=== PATIENT | male | born 1955 | race Caucasian/White ===

== ENCOUNTER → 2017-06-13 | Day surgery (SDC) | payer OTHER ==
[2017-06-07 07:35] VITALS: Ht 193 cm; Wt 106.8 kg
[~2017-06-13] VITALS: Ht 193 cm; Wt 106.8 kg
[~2017-06-13] MED LIST: ATOR-22 PO; LIDOCAINE HCL 2% 2 ML VIAL (20MG/ML) ONE; MIDAZOLAM HCL 1 MG/ML 2ML VIAL ONE; ONDANSETRON INJ 2 MG/ML 2 ML VIAL ONE; PROPOFOL IV EMULSION 10 MG/ML 20 ML VIAL IV ONE; SODIUM CHLORIDE 0.9% 500ML 500 ML IV ONE; [UNRECOGNIZED DRUG - OTHER] PO
--- NOTE | 2017-06-13 08:56 | Endo History and Physical ---
History & Physical Date of Service: Jun 13, 2017. Chief Complaint: history of polyps Referring Physician: Dr.Christopher Camarillo History of Present Illness 61 yo CM who presents for colonoscopy secondary to history of colon polyps. Past Surgical History Hx Cardiac Surgery: No Hx Internal Defibrillator: No Hx Pacemaker: No Hx Abdominal Surgery: Yes (SPLEENECTOMY S/P TRAUMA) Hx of Implantable Prosthesis: No Hx Post-Op Nausea and Vomiting: No Hx Cancer Surgery: No Hx Thoracic Surgery: No Hx Orthopedic: Yes (RT KNEE SURGERY) Hx Urinary Tract Surgery: No Family History None Social History Smoking Status: Never Smoker Hx Substance Use: No Hx Alcohol Use: Yes (OCCASIONAL) Allergies Coded Allergies: Sulfa Drugs (Verified Allergy, Intermediate, HIVES, 06/07/17) Current Medications Reported Home Medications Medications Dose Route/Sig Max Daily Dose Days Date Category [Procap] 6 Tabs PO DAILY 06/07/17 Reported Lipitor (Atorvastatin Calcium) 20 Mg Tab 20 Mg PO HS 06/07/17 Reported Vital Signs Weight (Kilograms): 106.82 Height (Feet): 6 Height (Inches): 4 Date Time Temp Pulse Resp B/P (MAP) Pulse Ox O2 Delivery O2 Flow Rate FiO2 06/13/17 08:40 36.5 56 16 113/65 (81) 99 Room Air Physical Exam General Appearance: WD/WN, no apparent distress Respiratory/Chest: Auscultation: breath sounds normal Cardiovascular: Heart Auscultation: RRR Abdomen: Bowel Sounds: normal Inspection & Palpation: soft, non-distended, no tenderness, guarding & rebound Assessment and Plan Assessment: 61 yo CM who presents for colonoscopy secondary to history of colon polyps. Plan: Proceed with colonoscopy.
--- NOTE | 2017-06-13 09:26 | GI REPORT ---
Procedure Date: 06/13/2017 9:00 AM Procedure: Colonoscopy Indications: High risk colon cancer surveillance: Personal history of colonic polyps Medicines: Monitored Anesthesia Care Complications: No immediate complications. Estimated Blood Loss: Estimated blood loss: none. Procedure: Pre-Anesthesia Assessment: - Prior to the procedure, a History and Physical was performed, and patient medications and allergies were reviewed. The patient's tolerance of previous anesthesia was also reviewed. The risks and benefits of the procedure and the sedation options and risks were discussed with the patient. All questions were answered, and informed consent was obtained. Prior Anticoagulants: The patient has taken no previous anticoagulant or antiplatelet agents. ASA Grade Assessment: II - A patient with mild systemic disease. After reviewing the risks and benefits, the patient was deemed in satisfactory condition to undergo the procedure. After I obtained informed consent, the scope was passed under direct vision. Throughout the procedure, the patient's blood pressure, pulse, and oxygen saturations were monitored continuously. The scope was introduced through the anus and advanced to the terminal ileum. The colonoscopy was performed without difficulty. The patient tolerated the procedure well. The quality of the bowel preparation was good. The terminal ileum, ileocecal valve, appendiceal orifice, and rectum were photographed. Findings: Multiple small-mouthed diverticula were found in the sigmoid colon. Non-bleeding internal hemorrhoids were found during retroflexion. The hemorrhoids were small. Impression: - Diverticulosis in the sigmoid colon. - Non-bleeding internal hemorrhoids. - No specimens collected. Recommendation: - Resume previous diet. - Continue present medications. - Repeat colonoscopy in 5 years for surveillance. - Return to primary care physician as previously scheduled. Catracho Villalta DO 06/13/2017 9:25:55 AM This report has been signed electronically. Note Initiated On: 06/13/2017 9:00 AM I attest to the content of the Intraoperative Record and orders documented therein, exceptions below
--- NOTE | 2017-06-13 09:27 | Discharge Instructions ---
Endoscopy Patient Instructions Date / Procedure(s) Performed Jun 13, 2017. Colonoscopy Allergy Information Coded Allergies: Sulfa Drugs (Verified Allergy, Intermediate, HIVES, 06/07/17) Discharge Date / Findings Jun 13, 2017. Diverticulosis Internal hemorrhoids Medication Instructions OK to resume all medications today as prescribed Reported Home Medications Medications Dose Route/Sig Max Daily Dose Days Date Category [Procap] 6 Tabs PO DAILY 06/07/17 Reported Lipitor (Atorvastatin Calcium) 20 Mg Tab 20 Mg PO HS 06/07/17 Reported Provider Instructions Activity Restrictions - No exercising or heavy lifting for 24 hours. - Do not drink alcohol the day of the procedure. - Do not drive a car or operate machinery until the day after the procedure. - Do not make any important decisions or sign important papers in 24 hours after the procedure. Following Day: - Return to full activity which may include returning to work/school. Diet Start your diet with liquids and light foods (jello, soup, juice, toast). Then eat your usual diet if not nauseated. Treatment For Common After Affects For mild abdominal pain, bloating, or excessive gas: - Rest - Eat lightly - Lie on right side Follow-Up Information Follow-up with Dr.Christopher Camarillo as scheduled Anesthesia Information What You Should Know You have had a procedure that required some medicine to reduce anxiety and discomfort. This treatment is called moderate sedation. After receiving the treatment, you may be sleepy, but you will be able to breathe on your own. The effects of the treatment may last for several hours. Follow these instructions along with Activity/Diet recommendations noted above: * Do NOT do anything where dizziness or clumsiness would be dangerous. * Rest quietly at home today, then you can be up and about tomorrow. * Have a responsible person stay with you the rest of today. * You may have had an I.V. today. If so, you may take the dressing off later today. Recommendations Call your doctor if: * Trouble breathing * Continuous vomiting for more than 24 hours * Temperature above 101 degrees * Severe abdominal pain or bloating * Pain not relieved by pain medicine ordered * There is increased drainage or redness from any incision * A large amount of rectal bleeding greater than 2-3 tablespoons. (If you had a polyp/s removed or have hemorrhoids, a small amount of blood - from the rectum is to be expected.) * You have any unanswered questions or concerns. IN THE EVENT OF A SERIOUS EMERGENCY, GO TO THE NEAREST EMERGENCY ROOM Your discharge instructions were prepared by provider Catracho Villalta. Patient Instructions Signature Page Elpidio Wren Patient (or Guardian) Signature/Date: I have read and understand the instructions given to me by my caregivers. Caregiver/RN/Doctor Signature/Date: The above-named patient and/or guardian has received patient instructions on this date. + Original Patient Signature Page (only) stays with chart. Please make copy for patient.
[2017-06-13 09:54] VITALS: BP 114/80; PULSE 44; O2SAT 100
--- NOTE | 2017-06-13 10:35 | Anesthesiology Progress Note ---
Anesthesia Post Op Note Date & Time Jun 13, 2017 at 10:35 Vital Signs Pain Intensity: 0 Vital Signs Past 12 Hours Date Time Temp Pulse Resp B/P (MAP) Pulse Ox O2 Delivery O2 Flow Rate FiO2 06/13/17 09:54 44 20 114/80 (91) 100 Room Air 06/13/17 09:39 55 20 124/71 (88) 95 Room Air 06/13/17 09:24 52 16 98/64 (75) 95 Room Air 06/13/17 08:40 36.5 56 16 113/65 (81) 99 Room Air Notes Mental Status: alert / awake / arousable, participated in evaluation Pt Amnestic to Procedure: Yes Nausea / Vomiting: adequately controlled Pain: adequately controlled Airway Patency, RR, SpO2: stable & adequate BP & HR: stable & adequate Hydration State: stable & adequate Anesthetic Complications: no major complications apparent
== END | disposition home or self-care (01) ==
LOC: C.GI 08:12
PROVIDERS: ATTEND Internal Medicine
DX: Z12.11 Encounter for screening for malignant neoplasm of colon (principal); K57.30 Diverticulosis of large intestine without perforation or abscess without bleeding; K64.8 Other hemorrhoids; Z86.010 Personal history of colon polyps; Z79.899 Other long term (current) drug therapy

== ENCOUNTER 2017-12-19 08:56 | Emergency (ER) | payer OTHER ==
[~2017-12-19] VITALS: Ht 193 cm; Wt 113.5 kg
[~2017-12-19 08:56] MED LIST changes: -LIDOCAINE HCL 2% 2 ML VIAL (20MG/ML) ONE; -MIDAZOLAM HCL 1 MG/ML 2ML VIAL ONE; -ONDANSETRON INJ 2 MG/ML 2 ML VIAL ONE; -PROPOFOL IV EMULSION 10 MG/ML 20 ML VIAL IV ONE; -SODIUM CHLORIDE 0.9% 500ML 500 ML IV ONE
[2017-12-19 08:58] VITALS: TEMP 36.7; O2SAT 99; Ht 193 cm; Wt 113.5 kg
[2017-12-19] MEDS ORDERED: METOCLOPRAMIDE HCL INJ 5 MG/ML 2 ML VIAL IV STA (09:40)
[2017-12-19] MEDS ORDERED: SODIUM CHLORIDE 0.9% 1000ML 2,000 ML IV STA (09:40)
[2017-12-19] MEDS ORDERED: DiphenhydrAMINE HCL 50 MG/ML VIAL IV STA (09:40)
--- NOTE | 2017-12-19 10:05 | EMERGENCY ROOM VISIT NOTE ---
History Report prepared by Jose Maria: Barber Lindo Under the Supervision of: Dr. Tremaine Lerma M.D. First contact with patient: 09:38 Chief Complaint: HEADACHE Stated Complaint: HEADACHE, MUSCLE ACHES, HEAVINESS IN CHEST History of Present Illness The patient is a 62 year old male who presents to the Emergency Room with complaints of worsening headache for the past three days. The patient is additionally complaining of body aches and chest heaviness. The patient notes that he has been hunting a lot recently, and he has pulled multiple ticks off of his skin, and he does not think that any of them have been engorged. He has never had lyme's disease before. The patient denies any abdominal pain, pain with urination, nausea, cough, congestion, and diarrhea. The patient states that he has been eating and drinking well recently, and he states that he takes atorvastatin regularly. He states that he has a ruptured spleen after a fall, though he states that he is not on regular antibiotics. The patient notes that he occasionally drinks alcohol, and he last drank 5 days ago. The patient states that he feels feverish, and he states that he has not had any rashes. Source of History: patient Onset: 3 days ago Position: head Quality: ache Timing: worsening Associated Symptoms: No cough, No nausea, No abdominal pain, No diarrhea, No rash Note: Associated symptoms: Chest heaviness and body aches Review of Systems See HPI for pertinent positives and negatives. A total of ten systems were reviewed and were otherwise negative. Past Medical & Surgical Medical Problems: (1) Hx-Sulfonamides Allergy (2) No Known Active Medical Problems Surgical Problems: (1) History of splenectomy Family History Cancer Diabetes mellitus Social History Smoking Status: Unknown if Ever Smoked Alcohol Use: occasionally Marital Status: Occupation Status: retired Current/Historical Medications No Active Prescriptions or Reported Meds Allergies Coded Allergies: Sulfa Drugs (Verified Allergy, Intermediate, HIVES, 12/19/17) Physical Exam Vital Signs Date Time Temp Pulse Resp B/P (MAP) Pulse Ox O2 Delivery O2 Flow Rate FiO2 12/19/17 12:34 78 18 135/62 12/19/17 09:46 64 18 12/19/17 09:41 62 17 12/19/17 09:36 60 20 12/19/17 09:31 65 18 124/71 12/19/17 09:26 63 18 12/19/17 09:21 64 15 12/19/17 09:16 63 15 12/19/17 09:11 61 17 12/19/17 09:10 60 12/19/17 09:08 118/73 12/19/17 08:58 36.7 72 20 148/86 99 Room Air Physical Exam GENERAL: Awake, alert, fatigued-appearing, in no distress HENT: Normocephalic, atraumatic. Dry mucous membranes otherwise oropharynx unremarkable. EYES: Normal conjunctiva. Sclera non-icteric. NECK: Supple. No nuchal rigidity. FROM. No JVD. RESPIRATORY: Clear to auscultation. CARDIAC: Regular rate, normal rhythm. Extremities warm and well perfused. Pulses equal. ABDOMEN: Soft, non-distended. No tenderness to palpation. No rebound or guarding. No masses. RECTAL: Deferred. MUSCULOSKELETAL: Chest examination reveals no tenderness. The back is symmetrical on inspection without obvious abnormality. There is no CVA tenderness to palpation. No joint edema. LOWER EXTREMITIES: Calves are equal size bilaterally and non-tender. No edema. No discoloration. NEURO: Normal sensorium. No sensory or motor deficits noted. Normal cerebellar function with ocfdyq-eg-[id number], alternating palms, wojv-sm-imcf. SKIN: No rash or jaundice noted. Medical Decision & Procedures ER Provider Diagnostic Interpretation: Radiology results as stated below per my review and radiologist interpretation: SINGLE VIEW CHEST CLINICAL HISTORY: Generalized abdominal pain. FINDINGS: An AP, portable, upright chest radiograph is obtained. No prior studies are available for comparison at the time of dictation. The examination is degraded by portable technique and patient rotation. The cardiomediastinal silhouette is unremarkable. There is minimal bibasilar atelectasis. The lungs and pleural spaces are otherwise clear. No pneumothorax is seen. The bony thorax is grossly intact. IMPRESSION: No active disease in the chest. Electronically signed by: Cameron Garnett M.D. 12/19/2017 10:04 AM Dictated Date/Time: 12/19/2017 10:04 AM Laboratory Results 12/19/17 10:20 Red Blood Count 4.74, Mean Corpuscular Volume 94.9, Mean Corpuscular Hemoglobin 33.1, Mean Corpuscular Hemoglobin Concent 34.9, Mean Platelet Volume 9.6, Neutrophils (%) (Auto) 82.1, Lymphocytes (%) (Auto) 11.3, Monocytes (%) (Auto) 5.3, Eosinophils (%) (Auto) 0.4, Basophils (%) (Auto) 0.5, Neutrophils # (Auto) 6.24, Lymphocytes # (Auto) 0.86, Monocytes # (Auto) 0.40, Eosinophils # (Auto) 0.03, Basophils # (Auto) 0.04 12/19/17 10:20 Test 12/19/17 10:20 White Blood Count 7.60 K/uL (4.8-10.8) Red Blood Count 4.74 M/uL (4.7-6.1) Hemoglobin 15.7 g/dL (14.0-18.0) Hematocrit 45.0 % (42-52) Mean Corpuscular Volume 94.9 fL (80-100) Mean Corpuscular Hemoglobin 33.1 pg (25-34) Mean Corpuscular Hemoglobin Concent 34.9 g/dl (32-36) Platelet Count 263 K/uL (130-400) Mean Platelet Volume 9.6 fL (7.4-10.4) Neutrophils (%) (Auto) 82.1 % Lymphocytes (%) (Auto) 11.3 % Monocytes (%) (Auto) 5.3 % Eosinophils (%) (Auto) 0.4 % Basophils (%) (Auto) 0.5 % Neutrophils # (Auto) 6.24 K/uL (1.4-6.5) Lymphocytes # (Auto) 0.86 K/uL (1.2-3.4) Monocytes # (Auto) 0.40 K/uL (0.11-0.59) Eosinophils # (Auto) 0.03 K/uL (0-0.5) Basophils # (Auto) 0.04 K/uL (0-0.2) RDW Standard Deviation 44.4 fL (36.4-46.3) RDW Coefficient of Variation 12.8 % (11.5-14.5) Immature Granulocyte % (Auto) 0.4 % Immature Granulocyte # (Auto) 0.03 K/uL (0.00-0.02) Anion Gap 6.0 mmol/L (3-11) Est Creatinine Clear Calc Drug Dose 96.3 ml/min Estimated GFR () 82.6 Estimated GFR (Non- 71.3 BUN/Creatinine Ratio 8.9 (10-20) Calcium Level 8.7 mg/dl (8.5-10.1) Magnesium Level 2.0 mg/dl (1.8-2.4) Total Bilirubin 1.0 mg/dl (0.2-1) Direct Bilirubin 0.2 mg/dl (0-0.2) Aspartate Amino Transf (AST/SGOT) 25 U/L (15-37) Alanine Aminotransferase (ALT/SGPT) 33 U/L (12-78) Alkaline Phosphatase 61 U/L (45-117) Troponin I < 0.015 ng/ml (0-0.045) Total Protein 7.5 gm/dl (6.4-8.2) Albumin 3.4 gm/dl (3.4-5.0) Lipase 94 U/L (73-393) Lyme Disease IgG Antibody NEG (NEG) Lyme Disease IgM Antibody NEG (NEG) Influenza Type A (RT-PCR) Neg for Influ A (NEG) Influenza Type B (RT-PCR) Neg for Influ B (NEG) Laboratory results reviewed by me Medications Administered Medications (Trade) Dose Ordered Sig/Gisell Route Start Time Stop Time Status Last Admin Dose Admin Sodium Chloride 2,000 ml @ 999 mls/hr Q2H1M STAT IV 12/19/17 09:40 12/19/17 11:40 DC 12/19/17 10:18 999 MLS/HR Metoclopramide HCl (Reglan Inj) 10 mg NOW STAT IV 12/19/17 09:40 12/19/17 09:48 DC 12/19/17 10:18 10 MG Diphenhydramine HCl (Benadryl Inj) 25 mg NOW STAT IV 12/19/17 09:40 12/19/17 09:48 DC 12/19/17 10:18 25 MG ECG Per My Interpretation Indication: other (headache) Rate (beats per minute): 61 Rhythm: sinus rhythm Findings: PAC, no acute ischemic change, left axis deviation ED Course 0938: The patient was evaluated in room B10. A complete history and physical exam was performed. 1236: I reevaluated the patient. Discussed results and discharge instructions: He verbalized understanding and agreement. The patient is ready for discharge. Medical Decision I reviewed the patient's past medical history, medications, and the nursing notes as described above. Differential diagnosis: Etiologies such as viral syndrome, otitis, pharyngitis, pneumonia, influenza, meningitis, urinary tract infection, sepsis, bacteremia, as well as others were entertained. 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 On arrival the patient is fatigued but in NAD, AFVSS. Appears clinically dry. Neuro intact with normal cerebellar function with vqicwd-af-tujq , alternating palms, pusz-hi-qxmd. EKG unremarkable. Troponin negative in the setting of > 6 hours of sx. CXR negative. WBC wnl and labs otherwise unremarkable including Flu and Lyme negative. Patient feeling improved with complete resolution of sx after IVF hydration, Reglan, diphenhydramine. Given afebrile with reassuring w/u, sx likely related to dehydration. Risks of infection in setting of being asplenic reviewed with patient. Plan for for pcp f /u for re-evaluation and repeat lyme screen. Findings and plan for follow-up reviewed with patient. Patient agreeable and d/c'd per discharge instructions. Medication Reconcilliation Current Medication List: was personally reviewed by me Blood Pressure Screening Patient's blood pressure: Normal blood pressure Impression Primary Impression: Dehydration Additional Impressions: Headache Myalgia Scribe Attestation The scribe's documentation has been prepared under my direction and personally reviewed by me in its entirety. I confirm that the note above accurately reflects all work, treatment, procedures, and medical decision making performed by me. Departure Information Dispostion Home / Self-Care Prescriptions No Active Prescriptions or Reported Meds Referrals Mani Camarillo M.D. (PCP) Forms HOME CARE DOCUMENTATION FORM, IMPORTANT VISIT INFORMATION Patient Instructions ED Dehydration, ED Headache Tension, My [facility] Additional Instructions Please follow up with your primary care physician in the next 1-3 days for re- evaluation. You may consider repeating your Lyme screen with your doctor in the next 1-2 weeks as well as testing will not you should be on prophylactic antibiotics given that you have no spleen. The cause of your symptoms are likely due to mild dehydration. Otherwise, your exam, EKG, chest xray, and lab results did not show signs of an emergent condition at this time. Drink plenty of fluids to ensure hydration. Return to the emergency department for worsening symptoms as described in the accompanying instructions. Problem Qualifiers
[2017-12-19 10:35] LABS: BASO % 0.5 %; BASO ABS # 0.04 K/uL (0-0.2); EOS % 0.4 %; EOS ABS # 0.03 K/uL (0-0.5); HEMOGLOBIN 15.7 g/dL (14.0-18.0); IG# 0.03 K/uL (0.00-0.02); LYMPH % 11.3 %; LYMPH ABS # 0.86 K/uL (1.2-3.4); MEAN CELL VOLUME 94.9 fL (80-100); MEAN CORPUSCULAR HEMOGLOBIN 33.1 pg (25-34); MEAN CORPUSCULAR HGB CONC 34.9 g/dl (32-36); MEAN PLATELET VOLUME 9.6 fL (7.4-10.4); MONO % 5.3 %; NEUT % 82.1 %; NEUT ABS # 6.24 K/uL (1.4-6.5); PLATELET COUNT 263 K/uL (130-400); RED CELL DISTRIBUTION WIDTH CV 12.8 % (11.5-14.5); RED CELL DISTRIBUTION WIDTH SD 44.4 fL (36.4-46.3)
[2017-12-19 10:56] LABS: ALBUMIN 3.4 gm/dl (3.4-5.0); ALKALINE PHOSPHATASE 61 U/L (45-117); ALT/SGPT 33 U/L (12-78); AST/SGOT 25 U/L (15-37); BLOOD UREA NITROGEN 10 mg/dl (7-18); CALCIUM 8.7 mg/dl (8.5-10.1); CARBON DIOXIDE 27 mmol/L (21-32); CREATININE 1.11 mg/dl (0.60-1.40); GLUCOSE 106 mg/dl (70-99); LIPASE 94 U/L (73-393); POTASSIUM 3.8 mmol/L (3.5-5.1); SODIUM 136 mmol/L (136-145); TOTAL PROTEIN 7.5 gm/dl (6.4-8.2)
[2017-12-19 11:16] LABS: INFLUENZA A PCR Neg for Influ A (NEG); INFLUENZA B PCR Neg for Influ B (NEG)
[2017-12-19 12:34] VITALS: BP 135/62; PULSE 78
== END 2017-12-19 12:50 | disposition home or self-care (01) ==
LOC: C.EDB 08:58
DX: R51 Headache (principal); E86.0 Dehydration; M79.1 Myalgia; Z88.2 Allergy status to sulfonamides

== ENCOUNTER 2017-12-20 12:38 | Emergency (ER) | payer OTHER ==
[~2017-12-20] VITALS: Ht 193 cm; Wt 112.3 kg
[2017-12-20 12:53] VITALS: Ht 193 cm; Wt 112.3 kg
[2017-12-20] MEDS ORDERED: SODIUM CHLORIDE 0.9% 1000ML 1,000 ML IV STA ×2 (13:18→15:43)
[2017-12-20] MEDS ORDERED: KETOROLAC TROMETHAMINE 30 MG/ML VIAL IV STA (13:18)
--- NOTE | 2017-12-20 13:39 | EMERGENCY ROOM VISIT NOTE ---
History Report prepared by Jose Maria: Barber Lindo Under the Supervision of: Dr. uJng Day D.O. First contact with patient: 13:08 Chief Complaint: HEADACHE Stated Complaint: FATIGUE, HEADACHE, NAUSEA, DIZZINESS, JOINT ACHE History of Present Illness The patient is a 62 year old male who presents to the Emergency Room with complaints of a constant headache for the past 4 days. The patient notes that the pain got worse two days ago, and he states that he has muscle aches, joint pain, nausea, indigestion, fatigue, and neck pain and stiffness. He denies fever , vomiting, diarrhea, abdominal pain, recent travel, rash, and joint swelling. The patient states that he has never had pain like this before. 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 He states that he gets shots for this, and he is currently up to date. The patient has high cholesterol, and he takes medications, though he does not take any blood thinners. He has not seen his PCP yet since he has been unable to get an appointment. The patient states that he still has his gall bladder and appendix. Source of History: patient Onset: 4 days ago Position: head Quality: ache Timing: constant, worsening Associated Symptoms: + neck pain, + nausea, + fatigue, No fevers, No vomiting, No abdominal pain, No diarrhea, No rash Note: Associated sympyoms: muscle aches, joint pain, indigestion. Review of Systems See HPI for pertinent positives & negatives. A total of 10 systems reviewed and were otherwise negative. Past Medical & Surgical Medical Problems: (1) Hx-Sulfonamides Allergy (2) No Known Active Medical Problems Surgical Problems: (1) History of splenectomy Family History Cancer Diabetes mellitus Social History Smoking Status: Never Smoker Alcohol Use: occasionally Marital Status: Occupation Status: retired Current/Historical Medications No Active Prescriptions or Reported Meds Allergies Coded Allergies: Sulfa Drugs (Verified Allergy, Intermediate, HIVES, 12/20/17) Physical Exam Vital Signs Date Time Temp Pulse Resp B/P (MAP) Pulse Ox O2 Delivery O2 Flow Rate FiO2 12/20/17 17:08 37.5 65 14 109/61 96 12/20/17 15:48 14 12/20/17 15:44 65 109/61 12/20/17 14:23 73 15 12/20/17 14:18 64 18 12/20/17 14:13 60 19 12/20/17 14:08 65 19 12/20/17 14:03 64 15 12/20/17 13:59 63 12/20/17 13:58 63 22 12/20/17 12:53 37.5 75 18 121/70 96 Room Air Physical Exam GENERAL: Patient is awake, alert, and in no acute distress. Patient is resting comfortably and showing no signs of anxiety EYES: The conjunctivae are clear. The pupils are round and reactive. EARS, NOSE, MOUTH AND THROAT: The nose is without any evidence of any deformity. Mucous membranes are moist tongue is midline NECK: The neck is nontender and supple. RESPIRATORY: Normal respiratory effort is noted there is no evidence of wheezing rhonchi or rales CARDIOVASCULAR: Regular rate and rhythm noted there no murmurs rubs or gallops normal S1 normal S2 GASTROINTESTINAL: The abdomen is soft. Bowel sounds are present in all quadrants. Abdomen is nontender MUSCULOSKELETAL/EXTREMITIES: There is no evidence of gross deformity full range of motion is noted in the hips and shoulders SKIN: There is no obvious evidence of any rash. There are no petechiae, pallor or cyanosis noted. NEUROLOGIC: Patient is awake alert and oriented x3 strength is symmetric patellar reflexes are 2+ bilaterally Medical Decision & Procedures ER Provider Diagnostic Interpretation: Radiology results as stated below per my review and radiologist interpretation: CT SCAN OF THE BRAIN WITHOUT IV CONTRAST CLINICAL HISTORY: Change in mental status. Weakness. COMPARISON STUDY: No priors. TECHNIQUE: Unenhanced axial CT scan of the brain is performed from the vertex to the skull base. A dose lowering technique was utilized adhering to the principles of ALARA. CT DOSE: 687.98 mGy.cm FINDINGS: Brain parenchyma: The brain parenchyma is normal in appearance. There is no hemorrhage, mass effect, or evidence of acute territorial ischemia by CT criteria. Olson-white matter is preserved. No extra-axial fluid collection is seen. Ventricles, sulci, cisterns: Normal in configuration. Intracranial vasculature: The visualized intracranial vasculature at the skull base is normal in appearance. Calvarium: Unremarkable. Sinuses and mastoids: Because of thickening is seen in the ethmoid sinuses as well as the left frontal sinus. The remaining visualized paranasal sinuses are clear. The mastoid air cells are well pneumatized. Orbits: The bony orbits are grossly intact. IMPRESSION: There is no hemorrhage, mass effect, or evidence of acute territorial ischemia by CT criteria. Electronically signed by: Cameron Garnett M.D. 12/20/2017 2:35 PM Dictated Date/Time: 12/20/2017 2:34 PM Laboratory Results 12/20/17 13:55 Red Blood Count 5.00, Mean Corpuscular Volume 93.4, Mean Corpuscular Hemoglobin 33.6, Mean Corpuscular Hemoglobin Concent 36.0, Mean Platelet Volume 9.5, Neutrophils (%) (Auto) 83.9, Lymphocytes (%) (Auto) 5.8, Monocytes (%) (Auto) 9.0, Eosinophils (%) (Auto) 0.0, Basophils (%) (Auto) 1.0, Neutrophils # (Auto) 5.96, Lymphocytes # (Auto) 0.41, Monocytes # (Auto) 0.64, Eosinophils # (Auto) 0.00, Basophils # (Auto) 0.07 12/20/17 13:55 Test 12/20/17 13:55 12/20/17 15:40 White Blood Count 7.10 K/uL (4.8-10.8) Red Blood Count 5.00 M/uL (4.7-6.1) Hemoglobin 16.8 g/dL (14.0-18.0) Hematocrit 46.7 % (42-52) Mean Corpuscular Volume 93.4 fL (80-100) Mean Corpuscular Hemoglobin 33.6 pg (25-34) Mean Corpuscular Hemoglobin Concent 36.0 g/dl (32-36) Platelet Count 221 K/uL (130-400) Mean Platelet Volume 9.5 fL (7.4-10.4) Neutrophils (%) (Auto) 83.9 % Lymphocytes (%) (Auto) 5.8 % Monocytes (%) (Auto) 9.0 % Eosinophils (%) (Auto) 0.0 % Basophils (%) (Auto) 1.0 % Neutrophils # (Auto) 5.96 K/uL (1.4-6.5) Lymphocytes # (Auto) 0.41 K/uL (1.2-3.4) Monocytes # (Auto) 0.64 K/uL (0.11-0.59) Eosinophils # (Auto) 0.00 K/uL (0-0.5) Basophils # (Auto) 0.07 K/uL (0-0.2) RDW Standard Deviation 44.1 fL (36.4-46.3) RDW Coefficient of Variation 12.9 % (11.5-14.5) Immature Granulocyte % (Auto) 0.3 % Immature Granulocyte # (Auto) 0.02 K/uL (0.00-0.02) Erythrocyte Sedimentation Rate 12 mm/hr (0-14) Anion Gap 7.0 mmol/L (3-11) Est Creatinine Clear Calc Drug Dose 95.0 ml/min Estimated GFR () 81.7 Estimated GFR (Non- 70.5 BUN/Creatinine Ratio 10.8 (10-20) Calcium Level 8.7 mg/dl (8.5-10.1) Magnesium Level 1.7 mg/dl (1.8-2.4) Total Bilirubin 1.4 mg/dl (0.2-1) Direct Bilirubin 0.3 mg/dl (0-0.2) Aspartate Amino Transf (AST/SGOT) 31 U/L (15-37) Alanine Aminotransferase (ALT/SGPT) 35 U/L (12-78) Alkaline Phosphatase 59 U/L (45-117) Total Creatine Kinase 70 U/L (39-308) C-Reactive Protein 5.35 mg/dl (0-0.29) Total Protein 7.8 gm/dl (6.4-8.2) Albumin 3.6 gm/dl (3.4-5.0) Thyroid Stimulating Hormone (TSH) 1.280 uIu/ml (0.300-4.500) Lyme Disease IgG Antibody NEG (NEG) Lyme Disease IgM Antibody NEG (NEG) CSF Color COLORLESS CSF Appearance CLEAR CSF WBC 0 /uL (0-5) CSF RBC 0 /uL (0) CSF Xanthrochromic NO XANTHOCHROMIA CSF Cell Count Tube # 4 CSF Polynuclear WBCs (%) % CSF Chemistry Tube # 2 CSF Glucose 67 mg/dl (40-70) CSF Total Protein 31.6 mg/dl (15.0-45.0) Laboratory results per my review. Medications Administered Medications (Trade) Dose Ordered Sig/Gisell Route Start Time Stop Time Status Last Admin Dose Admin Sodium Chloride 1,000 ml @ 999 mls/hr Q1H1M STAT IV 12/20/17 13:18 12/20/17 14:18 DC 12/20/17 14:00 999 MLS/HR Ketorolac Tromethamine (Toradol Inj) 30 mg NOW STAT IV 12/20/17 13:18 12/20/17 13:20 DC 12/20/17 14:07 30 MG Magnesium Sulfate (Magnesium Sulfate 1gm / D5W) 2 gm NOW STAT IV 12/20/17 14:31 12/20/17 14:32 DC 12/20/17 14:42 2 GM Sodium Chloride 1,000 ml @ 999 mls/hr Q1H1M STAT IV 12/20/17 15:43 12/20/17 16:43 DC 12/20/17 15:49 999 MLS/HR Procedure Lumbar Puncture Indication: headache. Verbal consent was obtained after the risks and benefits were explained, including but not limited to headache, bleeding/clotting, scarring, infection, pain, and bone/joint/nerve damage. At this time, the risks of the procedure are less than the risks of NOT performing the procedure. A time out was taken and the correct patient and site identified. The patient was placed in the seated position and the back was prepped with betadine and draped in the standard fashion. The L3 intervertebral space was identified, anesthetized locally with 1 % lidocaine without epinephrine, and the spinal needle was inserted through the skin with the bevel parallel to the dural fibers. The needle was carefully advanced into the lumbar cistern and 4 tubes of clear CSF was obtained. The stylet was replaced and the needle was removed. A bandaid was placed and the patient was placed in the supine position. The patient tolerated the procedure well and there were no complications. ED Course 1308: The patient was evaluated in room B3. A complete history and physical examination were performed. 1318: Toradol 30mg IV, NSS 1,000 ml @ 999 mls/hr IV 1431: Magnesium Sulfate 2gm IV 1524: I performed the lumbar puncture as described above. 1530: Buffered Lidocaine 1% INFIL 1543: NSS 1,000 ml @ 999 mls/hr IV 1654: Upon reevaluation, the patient is doing well. I discussed the results and treatment plan with him. He verbalized agreement of the treatment plan. He was discharged home. Medical Decision Differential diagnosis: Etiologies such as migraine headache, meningitis, sinusitis, CO exposure, ICH, SAH, infection, tumor, headache, sinus thrombosis, arterial dissection, as well as others were entertained. Nursing notes reviewed. The patient is a 62-year-old male who presented to the emergency department for an evaluation of headache and malaise. The patient was seen yesterday for similar complaints. He does have a history of having his spleen removed but he did not have a fever in the emergency department. I discussed patient's laboratory and radiographic studies with him. He had continued ongoing headache. He was treated with IV fluids in the emergency department. On subsequent reevaluation he was feeling much better but was very concerned for ongoing infection. For this reason a lumbar puncture was obtained. I discussed this with the patient. It was not consistent with meningitis or subarachnoid hemorrhage. He was encouraged to rest and avoid any strenuous activity. I discussed whether or not we should start the patient on doxycycline for possible tickborne illness but given the lack of other findings I would defer this to the patient's primary care physician. He was encouraged to return the emergency department immediately if he develops high fever or if the need arises. Otherwise he was encouraged to follow-up with his family doctor within the next few days. Medication Reconcilliation Current Medication List: was personally reviewed by me Blood Pressure Screening Patient's blood pressure: Normal blood pressure Impression Primary Impression: Headache Additional Impressions: Hyponatremia Hypomagnesemia Scribe Attestation The scribe's documentation has been prepared under my direction and personally reviewed by me in its entirety. I confirm that the note above accurately reflects all work, treatment, procedures, and medical decision making performed by me. Departure Information Dispostion Home / Self-Care Prescriptions No Active Prescriptions or Reported Meds Referrals Mani Camarillo M.D. (PCP) Forms HOME CARE DOCUMENTATION FORM, IMPORTANT VISIT INFORMATION, Work Instructions Patient Instructions Headache Pain, Lumbar Puncture Having, My [facility] Additional Instructions Continue using Motrin and Tylenol as directed for pain. Rest and avoid any strenuous activity. Drink plenty of clear liquids. Follow-up with your family doctor for reevaluation. I would recommend repeat laboratory studies to check your sodium and your magnesium as they were both low in the emergency department today. Return to the emergency department immediately if symptoms change worsen or the need arises. Problem Qualifiers Primary Impression: Headache Headache type: unspecified Headache chronicity pattern: acute headache Intractability: not intractable Qualified Codes: R51 - Headache
[2017-12-20 14:14] LABS: BASO ABS # 0.07 K/uL (0-0.2); HEMATOCRIT 46.7 % (42-52); HEMOGLOBIN 16.8 g/dL (14.0-18.0); IG# 0.02 K/uL (0.00-0.02); LYMPH % 5.8 %; LYMPH ABS # 0.41 K/uL (1.2-3.4); MEAN CELL VOLUME 93.4 fL (80-100); MEAN CORPUSCULAR HEMOGLOBIN 33.6 pg (25-34); MEAN PLATELET VOLUME 9.5 fL (7.4-10.4); MONO ABS # 0.64 K/uL (0.11-0.59); NEUT % 83.9 %; NEUT ABS # 5.96 K/uL (1.4-6.5); PLATELET COUNT 221 K/uL (130-400); RED CELL DISTRIBUTION WIDTH CV 12.9 % (11.5-14.5); RED CELL DISTRIBUTION WIDTH SD 44.1 fL (36.4-46.3)
[2017-12-20 14:29] LABS: ALBUMIN 3.6 gm/dl (3.4-5.0); CALCIUM 8.7 mg/dl (8.5-10.1); CREATININE 1.12 mg/dl (0.60-1.40); POTASSIUM 4.1 mmol/L (3.5-5.1)
[2017-12-20] MEDS ORDERED: MAGNESIUM SULFATE 1GM / D5W 1 GM BAG IV STA (14:31)
--- NOTE | 2017-12-20 14:37 | DIAGNOSTIC IMAGING REPORT ---
CT SCAN OF THE BRAIN WITHOUT IV CONTRAST CLINICAL HISTORY: Change in mental status. Weakness. COMPARISON STUDY: No priors. TECHNIQUE: Unenhanced axial CT scan of the brain is performed from the vertex to the skull base. A dose lowering technique was utilized adhering to the principles of ALARA. CT DOSE: 687.98 mGy.cm FINDINGS: Brain parenchyma: The brain parenchyma is normal in appearance. There is no hemorrhage, mass effect, or evidence of acute territorial ischemia by CT criteria. Olson-white matter is preserved. No extra-axial fluid collection is seen. Ventricles, sulci, cisterns: Normal in configuration. Intracranial vasculature: The visualized intracranial vasculature at the skull base is normal in appearance. Calvarium: Unremarkable. Sinuses and mastoids: Because of thickening is seen in the ethmoid sinuses as well as the left frontal sinus. The remaining visualized paranasal sinuses are clear. The mastoid air cells are well pneumatized. Orbits: The bony orbits are grossly intact. IMPRESSION: There is no hemorrhage, mass effect, or evidence of acute territorial ischemia by CT criteria. Electronically signed by: Cameron Garnett M.D. 12/20/2017 2:35 PM Dictated Date/Time: 12/20/2017 2:34 PM
[2017-12-20 14:42] LABS: TOTAL PROTEIN 7.8 gm/dl (6.4-8.2)
[2017-12-20] MEDS ORDERED: LIDOCAINE 1% BUFFERED INJ 5 ML VIAL ONE (15:30)
[2017-12-20] MEDS ORDERED: LIDOCAINE 1% BUFFERED INJ 5 ML VIAL INFIL ONE (15:30)
[2017-12-20 16:26] LABS: CSF GLUCOSE 67 mg/dl (40-70); CSF TOTAL PROTEIN 31.6 mg/dl (15.0-45.0)
[2017-12-20 17:08] VITALS: BP 109/61; PULSE 65; TEMP 37.5; O2SAT 96
== END 2017-12-20 17:08 | disposition home or self-care (01) ==
LOC: C.EDB 12:41
DX: R51 Headache (principal); E87.1 Hypo-osmolality and hyponatremia; E83.42 Hypomagnesemia; M54.2 Cervicalgia

== ENCOUNTER 2022-09-02 06:22 | Inpatient (IN) ==
--- NOTE | 2022-08-27 11:41 | Anesthesiology Consultation ---
Date of Service August 27, 2022 Assessment & Plan (1) Encounter for pre-operative examination: Chart Review Chart Review: Acceptable Risk for Surgery and Patient NOT seen in Pre Admission Testing -COVID screening: Per PAT nursing assessment on 08/27/22. Pt has attended [employer] match three weeks ago and goes to congregation every Tuesday. No known COVID- 19 positive contacts or current COVID-19 related symptoms. Travel screen negative. Pt did test Covid negative with home test on 08/23/22 (pt Covid tested himself because has a cough- is negative for flu and Covid). Pt denies personal Covid symptoms and cough at this time.. Patient vaccinated for Covid. At surgeon discretion if preop Covid testing being done. Right Great Toe Chielectomy 08/04/22 at [facility]= Done under GA with LMA #5. Atraumatic x 1 History Surgery Operation Date: 09/02/22 08:15 Proposed Procedures p Laparoscopic Robotic Assisted Radical Retropubic Prostatectomy, Possible Open, Possible Pelvic Lymph Node Dissection, Possible Suprapubic Tube Placement - Ho Yeung, DO Height/Weight Height: 6 ft 4 in Weight: 111.13 kg Allergies Allergy/AdvReac Type Severity Reaction Status Date / Time Sulfa (Sulfonamide Allergy Intermediate HIVES Verified 08/27/22 10:20 Antibiotics) Medications Home Medications Medication Instructions Recorded Confirmed Last Taken atorvastatin 20 mg tablet 20 mg PO HS #90 tabs 03/12/22 08/27/22 Unknown Past Medical History Medical History (Updated 08/27/22 @ 11:39 by Tiffany Stearns PA-C) Acquired absence of spleen removed in 1971 BPH (benign prostatic hyperplasia) Dyslipidemia GERD (gastroesophageal reflux disease) hx-no meds currently Hallux rigidus hx Hemochromatosis associated with compound heterozygous mutation in HFE gene 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 Male erectile disorder of organic origin Prostate cancer Past Family History Family History Father , Passed Age 69 Diabetes Heart disease Sister Hemochromatosis Mother , Passed Age 74 Hemochromatosis Liver cancer Brother No problems noted. Daughter No problems noted. Daughter No problems noted. Past Surgical History Surgical History History of prostate biopsy (07/09/22) Dr. Andres Marrufo History of splenectomy high school football injury History of surgery (08/04/21) Right Foot, Bone Spur Removal Hx of appendectomy Hx of colonoscopy Hx of tonsillectomy Hx of vasectomy Social History Smoking Status: Former smoker tobacco type: cigarettes Do You Dip or Chew Tobacco: Yes (hx-quit long time ago; advised) Smoking End Date: long time ago Hx Alcohol Use: Yes Alcohol type: beer and hard liquor alcohol intake frequency: other Alcohol Intake Frequency Comment: once or twice per week Hx Substance Use: No substance use type: does not use Lab Results Anesthesia Preop Results Results Anesthesia Widget: WBC 5.85 K/ul (4.8-10.8) 08/20/22 Hgb 16.1 g/dl (14.0-18.0) 08/20/22 Hct 46.3 % (40.1-51.0) 08/20/22 Plt 329 K/uL (130-400) 08/20/22 Na 139 mmol/L (136-145) 08/20/22 K 4.4 mmol/L (3.5-5.1) 08/20/22 Cl 104 mmol/L (98-107) 08/20/22 CO2 30 mmol/L (21-32) 08/20/22 BUN 14 mg/dl (6-23) 08/20/22 Creat 0.95 mg/dl (0.6-1.4) 08/20/22 Glucose Level 92 mg/dl (70-99(Fasting)) 08/20/22 Testing Laboratory Results 08/20/22= URINE CULTURE: No growth Electrocardiogram Date: 07/12/22 Findings: + SB @ (44bpm) LAFB When compared to EKG from December 19, 2017- HR has decreased by 17bpm, otherwise no significant change per cardio Chest X-Ray Date: 08/20/22 Findings: + NAD
[~2022-09-02 06:22] MED LIST changes: -ATOR-22 PO; +LR 15ML/HR IV SCH; -[UNRECOGNIZED DRUG - OTHER] PO; +ceFAZolin 2000MG 2,000 MG/15 ML SYR IV SCH
--- NOTE | 2022-09-02 07:21 | History & Physical Bridge Note ---
Date of Service September 02, 2022 History & Physical Bridge Note I have examined the patient, reviewed the History & Physical and in the interval since the performance of the History & Physical I have noted the following changes of clinical significance: no changes noted
[2022-09-02] MEDS ORDERED: ePHEDrine sulfate 50 MG/ML AMP IV PRN (07:37)
[2022-09-02] MEDS ORDERED: DEXAMETHASONE SOD INJ 4 MG/ML VIAL ONE (07:37)
[2022-09-02] MEDS ORDERED: LIDOCAINE 2% 2 ML VIAL/AMP(20MG/ML) INFIL ONE (07:37)
[2022-09-02] MEDS ORDERED: fentaNYL citrate 100 MCG/2 ML VIAL IV PRN (07:37)
[2022-09-02] MEDS ORDERED: ONDANSETRON INJ 2 MG/ML 2 ML VIAL ONE (07:37)
[2022-09-02] MEDS ORDERED: PROPOFOL IV EMULSION 10 MG/ML 20 ML VIAL IV ONE (07:37)
[2022-09-02] MEDS ORDERED: ONDANSETRON INJ 2 MG/ML 2 ML VIAL IV PRN ×2 (07:37→15:17)
[2022-09-02] MEDS ORDERED: ATROPINE SULFATE 0.1 MG/ML 10ML SYR IV PRN (07:37)
[2022-09-02] MEDS ORDERED: ROCURONIUM BROMIDE 10 MG/ML 5 ML VIAL IV ONE (07:37)
[2022-09-02] MEDS ORDERED: HYDROmorphone INJ 2 MG/ML SYR/VIAL IV PRN (07:37)
[2022-09-02] MEDS ORDERED: fentaNYL citrate 100 MCG/2 ML VIAL ONE (07:38)
[2022-09-02] MEDS ORDERED: SUGAMMADEX SODIUM 200 MG/2 ML VIAL IV ONE (07:38)
[2022-09-02] MEDS ORDERED: MIDAZOLAM HCL 1 MG/ML 2ML VIAL ONE (07:38)
[2022-09-02] MEDS ORDERED: BUPIVACAINE 0.5 % 5 MG/1 ML MPF 30ML VIAL ONE (07:44)
[2022-09-02] MEDS ORDERED: ACETAMINOPHEN 1000 MG/100 ML IV IV ONE (07:56)
[2022-09-02] MEDS ORDERED: ePHEDrine sulfate 50 MG/ML AMP ONE (09:37)
[2022-09-02] MEDS ORDERED: ePHEDrine sulfate 50 MG/ML SYR ONE (09:37)
[2022-09-02] MEDS ORDERED: PHENYLEPHRINE HCL 10 MG/ML VIAL ONE (09:38)
[2022-09-02] MEDS ORDERED: FLOSEAL HEMOSTATIC MATRIX 10ML TOP ONE (09:45)
[2022-09-02] MEDS ORDERED: GLYCOPYRROLATE 0.2 MG/ML VIAL ONE (09:56)
[2022-09-02] MEDS ORDERED: SURGICEL ABSORB HEMOSTAT 2IN X 14IN TOP ONE (11:47)
[2022-09-02] MEDS ORDERED: KETOROLAC 30 MG/ML VIAL ONE (11:56)
--- NOTE | 2022-09-02 12:32 | Operative Report ---
PG Post Operative Report Pre & Post Diagnosis Operation Date: 09/02/22 08:15 Pre-Op Diagnosis: Prostate Cancer Post-Op Diagnosis: Prostate Cancer I identified the patient and participated in the time-out.: Yes Procedure Operation Date: 09/02/22 08:15 Actual Procedures p Robotic Assisted Laparoscopic Radical Prostatectomy with Bilateral Pelvic Lymph Node Dissection, Umbilical Hernia Closure (Not Applicable) - Ho Yeung, Surgeon Ho Yeung, II, DO Destination Imagination Coordinator Chioma TELLO Estimated Blood Loss 50 Findings Consistent with Post-Op Diagnosis Umbilical hernia. Specimens Prostate and Seminal Vesicle Left Pelvic Lymph Nodes Right Pelvic Lymph Nodes. Drains 18 Fr Silicon Bowman catheter. Anesthesia Type General Complications none Disposition Disposition: Recovery Room Indications Patient with Prostate Cancer. Risk and benefits were discussed at length. Patient elected to undergo robotic assisted laparoscopic Radical Prostatectomy. Description of Procedure The patient was brought to the operative suite and placed under general endotracheal intubation anesthesia in the supine position. The patient was transferred to the dorsal lithotomy position. At this point, the patient prepped and draped in the usual sterile fashion and a timeout was completed. Preoperative antibiotics of Ancef 2 grams had been given. ANGLE's and SCD's were placed on the patient's lower extremities. A catheter was placed using sterile technique. With the time out completed the patient was placed into Trendelenburg and the skin at the umbilicus was anesthetized. A small incision was made superior to the umbilicus. A Varess Needle was placed and confirmed to be in the abdominal cavity. Water drop test passed. The Abdominal cavity was insufflated to 15 mmHG. The camera port was then placed. A laparoscopic camera was placed into the port and the abdominal cavity inspected. No concerning features were noted. At this point, the skin was marked for port placement and 8mm working ports were placed. The skin was anesthetized down to fascia and an approx 1cm incision was made to place the 3 x 8mm ports. A 12 mm and 5 mm family and divorce legal assistant ports were also placed in similar fashion under direct visualization. The patient was transferred into steep Trendelenburg position and the legs lowered. The robot was positioned and docked. The camera was placed and all trocars were positioned under direct visualization. Chioma TELLO was integral in port placement, camera utilization, and docking p rocedure. She remained in sterile attire and then proceeded to assist the remainder of the case. At this point, I transitioned to the robotic console. At this point, the sigmoid colon was mobilized superiorly and the pelvis assessed. Adhesions were freed to allow mobilization. The peritoneum in the midline was opened between rectum and bladder and the vas deferens and seminal vesicles exposed. These were dissected with blunt technique. The vas was clipped and cut and mobilized. Cautery was used to assist dissection avoiding the tissue posteriorly near the rectum. The tissues lateral to the seminal vesicles were clipped with a hemolock and all bleeding controlled. This was taken as inferior as possible from this position. The medial umbilical ligaments were then identified and the peritoneum directly lateral on the right followed by the left was opened. The tissues were bluntly dissected to free the bladder's lateral attachments. This was taken down to the pubic bone and exposed the endopelvic fascia bilaterally. The medial ligaments were cut and the bladder dropped. The tissues was dissected anterior to the prostate. The endopelvic fascia on each side was then opened and the lateral edges of the prostate dissected. The Dorsal venous complex of the prostate was dissected and assessed. A 2-0 PDS suture was used to ligate the vessels. A suspension stitch was used and clipped. Electrocautery was used to cut the anterior attachments, the puboprostatic ligaments, and venous tissues. The bowman was manipulated to better visual the bladder neck and dissection was taken using electrocautery. The bladder neck was opened and dissected from the prostate. The UO were identified and dissection taken in a direction to avoid each side. The vas stump and seminal vesicles were exposed and used to assist in traction to dissect. The prostatic pedicles were better exposed. The posterior prostate was dissected. An attempt was made to limit cautery and utilize cold dissection of the lateral posterior prostate to attempt preservation of the neurovascular bundle bilaterally. Hemolock clips were utilized to clip the prostatic pedicle bilaterally. The dissection was taken to the apex of the prostate. The anterior prostate was released and the urethra exposed. Cold cutting was used to open the anterior portion and expose the catheter. This was removed and the urethra incised. The prostate was further freed and grasped and removed from the field. The entire dissection bed was inspected.Hemostatic agent was placed in the region. No areas of injury or bleeding was noted. Care was taken to examine the perirectal tissues. A probe was placed and no injuries or other issues were observed. The bladder neck and urethra were then approximated with a running barbed suture starting at the 5 o'clock position and moving to the 12 o'clock on each side. This was tied at the anterior portion. A leak test was completed without any evidence of issues. The right and left pelvic lymph tissue was identified in relation to the iliac vessels. Distal dissection was taken to the Node of Martha. Inferiorly the obturator vessels and nerve were identified. Lymphatic tissue within the surround fat tissue was dissected. This packet of tissues were sent for pathologic analysis and lymph node assessment. This was done for each separate side. Hemostatic agent was placed on the exposed vessels. The entire dissection space was inspected one final time. No bleeding or injuries or areas of concern were noted. No tumor or other concerning features were noted. At this point, the robot was undocked and moved away from the patient. The patient was taken out of Trendelenberg. The port sites were all assessed laparoscopically. The endoscopic bag was moved into the midline port. The 12 mm port site was closed with the Jarret Appiah device. The other ports were assessed and no issues observed. The umbilical incision was opened further exposing fascia which was then opened in order to removed the prostate in the bag. The patients known umbilical hernia was assessed during this portion. The defect in the fascia at the umbilicus was incorporated in the opening of the fascia. The prostate was removed. A running PDS suture was used to close fascia. The umbilical hernia defect was closed at the same time. A fat containing hernia sac was dissected free and removed. After closure of the fascia the umbilical hernia was assessed and the defect was completely closed. The subcutaneous tissues were closed with a running 2-0 vicryl suture. The skin at each site was closed with a stapling device. The area was cleaned and bandages placed on each incision. The patient was cleaned and bandaged, aroused from anesthesia, and transferred to the pacu in stable condition having tolerated the procedure well with no complications. I was present and participated in all aspects of the procedure. Chioma TELLO was critical in the portions as mentioned above. Will plan to observe postoperatively and monitor. Bowman to be remain in place until followup. I attest to the content of the Intraoperative Record and any orders documented therein. Any exceptions are noted below.
[2022-09-02 13:22] LABS: Hemoglobin 13.2 g/dl (14.0-18.0); Mean Corpuscular Hemoglobin 32.7 pg (25.0-34.0); Mean Corpuscular Hgb Conc 34.7 g/dL (32.0-36.0); Mean Corpuscular Volume 94.1 fL (80.0-100.0); Mean Platelet Volume 9.2 fL (9.4-12.4); Platelet Count 271 K/uL (130-400); RDW Coefficient of Variation 12.5 % (11.5-14.5); RDW Standard Deviation 43.6 fL (36.4-46.3); Red Blood Count 4.04 M/uL (4.70-6.10); White Blood Count 17.12 K/ul (4.8-10.8)
[2022-09-02 13:43] LABS: BUN Creatinine Ratio 18.2 (10-20); Calcium 8.3 mg/dl (8.5-10.1); Creatinine Clr Calc Pharmacy 102.4 ml/min; Est GFR (African American) 91.6 ml/min
[2022-09-02 13:51] LABS: Basophils # (auto) 0.03 K/uL (0-0.2); Basophils % (auto) 0.2 %; Echinocytes 1+; Eosinophils # (auto) 0.01 K/uL (0-0.50); Eosinophils % (auto) 0.1 %; Immature Granulocytes # (auto) 0.07 K/uL (0.01-0.20); Immature Granulocytes % (auto) 0.4 %; Lymphocytes # (auto) 1.02 K/uL (1.2-3.4); Monocytes # (auto) 0.47 K/uL (0.11-0.59); Monocytes % (auto) 2.7 %; Neutrophils # (auto) 15.52 K/uL (1.40-6.50); Neutrophils % (auto) 90.6 %
--- NOTE | 2022-09-02 13:56 | Anesthesiology Progress Note ---
Date of Service September 02, 2022 Anesthesia Post Procedure Vital Signs Vital Signs: Temp Pulse Pulse Resp BP Pulse Ox O2 Del Method 09/02/22 13:50 79 17 98/64 L 97 Nasal Cannula 09/02/22 13:40 75 18 93/60 L 96 Nasal Cannula 09/02/22 13:30 78 20 100/61 93 Nasal Cannula 09/02/22 13:20 82 24 84/56 L 94 Oxymask 09/02/22 13:00 91 H 22 88/58 L 96 Oxymask 09/02/22 13:10 88 22 85/50 L 95 Oxymask 09/02/22 12:50 36 C L 99 H 20 93/65 L 94 Oxymask 09/02/22 06:46 36.6 C 58 L 20 125/93 97 Room Air O2 Flow Rate 09/02/22 13:50 2 09/02/22 13:40 3 09/02/22 13:30 3 09/02/22 13:20 6 09/02/22 13:00 6 09/02/22 13:10 6 09/02/22 12:50 6 09/02/22 06:46 Transfer of Care Handoff Completed per policy Notes Mental Status: alert / awake / arousable and participated in evaluation Patient Amnestic to Procedure: Yes Nausea / Vomiting: adequately controlled Pain: adequately controlled Airway Patency, RR, SpO2: stable & adequate BP & HR: stable & adequate Hydration State: stable & adequate Anesthetic Complications: no major complications apparent and Pt Satisfied with anesthetic care
[2022-09-02] MEDS ORDERED: MoRPHine SULFATE 4 MG/ML 1 ML CARP\\VIAL IV PRN (15:17)
[2022-09-02] MEDS ORDERED: MoRPHine SULFATE 2 MG/ML CARP IV PRN (15:17)
[2022-09-02] MEDS ORDERED: oxyCODONE HCL IR 5 MG TAB (IMMEDIATE RELEASE) PO PRN ×2 (15:17)
[2022-09-02] MEDS: ACETAMINOPHEN 325 MG TAB PO SCH ×2 (15:26→20:59)
[2022-09-02] MEDS: LACTATED RINGER'S 1,000 ML IV SCH (15:27)
[2022-09-02] MEDS: ceFAZolin 2000MG 2,000 MG/15 ML SYR IV SCH ×2 (16:08→23:57)
[2022-09-02] MEDS: HEPARIN SOD 5,000 UNIT/0.5 ML VIAL SQ SCH (20:59)
[2022-09-02] MEDS: DOCUSATE SODIUM 100 MG CAP PO SCH (20:59)
[2022-09-02] MEDS ORDERED: ATORVASTATIN 20 MG TAB PO SCH (21:00)
[2022-09-03] MEDS: LACTATED RINGER'S 1,000 ML IV SCH (01:26)
[2022-09-03] MEDS: ACETAMINOPHEN 325 MG TAB PO SCH ×2 (03:17→08:52)
[2022-09-03 06:24] LABS: Basophils # (auto) 0.02 K/uL (0-0.2); Basophils % (auto) 0.2 %; Eosinophils # (auto) 0.01 K/uL (0-0.50); Eosinophils % (auto) 0.1 %; Hematocrit (blood only) 33.7 % (42.0-52.0); Hemoglobin 11.8 g/dl (14.0-18.0); Immature Granulocytes # (auto) 0.06 K/uL (0.01-0.20); Immature Granulocytes % (auto) 0.5 %; Lymphocytes # (auto) 1.42 K/uL (1.2-3.4); Lymphocytes % (auto) 10.7 %; Mean Corpuscular Hemoglobin 32.7 pg (25.0-34.0); Mean Corpuscular Volume 93.4 fL (80.0-100.0); Mean Platelet Volume 9.6 fL (9.4-12.4); Monocytes # (auto) 1.58 K/uL (0.11-0.59); Monocytes % (auto) 11.9 %; Neutrophils # (auto) 10.18 K/uL (1.40-6.50); Neutrophils % (auto) 76.6 %; Platelet Count 250 K/uL (130-400); RDW Coefficient of Variation 12.8 % (11.5-14.5); RDW Standard Deviation 43.9 fL (36.4-46.3); Red Blood Count 3.61 M/uL (4.70-6.10); White Blood Count 13.27 K/ul (4.8-10.8)
[2022-09-03 06:47] LABS: BUN Creatinine Ratio 16.7 (10-20); Calcium 8.3 mg/dl (8.5-10.1); Creatinine Clr Calc Pharmacy 112.7 ml/min; Est GFR (African American) 102.8 ml/min; Est GFR (Non-African American) 88.7 ml/min
[2022-09-03] MEDS: DOCUSATE SODIUM 100 MG CAP PO SCH (08:52)
[2022-09-03] MEDS: HEPARIN SOD 5,000 UNIT/0.5 ML VIAL SQ SCH (08:53)
--- NOTE | 2022-09-03 09:04 | Urology Progress Note ---
Date of Service September 03, 2022 Assessment & Plan (1) Prostate cancer: Plan: 67 yo M POD #1 s/p Robotic Laparoscopic-Assisted Radical Retropubic Prostatectomy with Dr. Yeung. - Doing well, progressing as expected - Afebrile, post op lab work reviewed and as expected - Minimal pain - Tolerating full liquid diet, will advance as tolerated for lunch, d/c IV fluids - Encouraged OOB ambulation - Incisions appropriate - Rogers catheter intact, patent and draining clear yellow urine - Maintain Rogers catheter upon discharge - Expected clinical course reviewed, all questions answered - Anticipate discharge to home later today if he continues to progress as expected - Outpatient follow-ups in place Pt reassessed at 1200 - at bedside. Pt progressing well. He is ambulating without difficulty, tolerating PO diet. Ready for discharge now -orders placed. Admission and Anticipated Discharge Date Admission Date: September 02, 2022 Subjective Patient seen and examined at bedside this morning. He is awake, alert and sitting up in bed eating breakfast. Tolerating full liquid diet. No nausea or vomiting. Passing flatus. Reports discomfort near right sided incisions. Rogers intact draining clear yellow urine. No fever or chills. He was out of bed yesterday evening, but not yet this morning. Review of Systems Constitutional: as per Subjective / HPI Gastrointestinal: as per Subjective / HPI Genitourinary: + as per Subjective / HPI Physical Exam Constitutional: well developed and well nourished; no acute distress Respiratory: normal respiratory effort; no respiratory distress and no labored breathing Cardiovascular: Extremities: no pedal edema Gastrointestinal (Abdomen): Inspection/Auscultation: abdomen normal to inspection; abdomen not distended Percussion/Palpation: + abdomen tender (Mildly tender to palpation near incisions) and abdomen soft Skin: Surgical dressings clean dry and intact. Removed for inspection. Incisions healthy, well approximated with delores, no erythema or drainage, minimal bruising. Psychiatric: Orientation: alert and oriented x 3 Genitourinary: Rogers intact draining clear yellow urine. Results & Data ([facility]) Vital Signs (Past 12 Hours) Vital Signs Temp Pulse Resp BP Pulse Ox O2 Del Method 09/03/22 07:21 36.8 C 76 16 113/65 95 Room Air 09/03/22 03:45 36.7 C 67 16 104/66 94 Room Air 02/02/23 22:36 36.5 C 78 18 97/61 L 96 Room Air PG Care Time/CCT Total # of Minutes Spent Total Time Spent with Patient: Total time spent is greater than 50% in coordination of care (as documented) at patient's floor/unit and/or counseling patient: Coding Level of Care Code None Diagnoses Prostate cancer C61
--- NOTE | 2022-09-03 12:23 | Discharge Summary ---
Date of Service September 03, 2022 Admission HPI Per Admitting Provider Patient with Prostate Cancer. Risk and benefits were discussed at length. Patient elected to undergo robotic assisted laparoscopic Radical Prostatectomy. Admission Exam Per Admitting Provider General: Alert in no acute distress. HEENT: Inspection normal Psychologic: Normal affect. Respiratory: Nonlabored. No use of accessory muscles. Skin: [place] and Dry. No rashes or visible lesions. Abdomen: Soft, nontender Principal Diagnosis Prostate cancer Discharge Exam Constitutional well developed and well nourished; no acute distress Respiratory normal respiratory effort; no respiratory distress and no labored breathing Cardiovascular Extremities: no pedal edema Gastrointestinal (Abdomen) Inspection/Auscultation: abdomen normal to inspection; abdomen not distended Percussion/Palpation: + abdomen tender (Mildly tender to palpation near incisions) and abdomen soft Psychiatric Orientation: alert and oriented x 3 Genitourinary Rogers intact and draining clear yellow urine Discharge Data Allergies Allergy/AdvReac Type Severity Reaction Status Date / Time Sulfa (Sulfonamide Allergy Intermediate HIVES Verified 09/02/22 06:44 Antibiotics) Procedures Performed Operation Date: 09/02/22 08:15 Actual Procedures p Robotic Assisted Laparoscopic Prostatectomy with Bilateral Pelvic Lymph Node Dissection(Not Applicable) - Ho Yeung, DO Hospital Course (1) Prostate cancer: 67 yo M POD #1 s/p Robotic Laparoscopic-Assisted Radical Retropubic Prostatectomy with Dr. Yeung. - Doing well, progressing as expected - Afebrile, post op lab work reviewed and as expected - Minimal pain - Tolerating full liquid diet, will advance as tolerated for lunch, d/c IV fluids - Encouraged OOB ambulation - Incisions appropriate - Rogers catheter intact, patent and draining clear yellow urine - Maintain Rogers catheter upon discharge - Expected clinical course reviewed, all questions answered - Anticipate discharge to home later today if he continues to progress as expected - Outpatient follow-ups in place Pt reassessed at 1200 - at bedside. Pt progressing well. He is ambulating without difficulty, tolerating PO diet. Ready for discharge now -orders placed. Total Time Total Time Spent Total Time Spent (In Minutes): 29 Discharge Plan Discharge Items Patient Disposition: Home - Self-Care Reason For Visit: PROSTATE CANCER Discharge Diagnosis: Prostate cancer Activity: Per Instructions section Lifting: No more than 10 pounds Bathing Comment: Okay to shower, no tub bath or soaking Sexual Activity: Wait until after follow-up appointment Exercise/Sports: Wait until after follow-up appointment Driving/Machine Use: No driving while taking prescription pain medication Non-emergency contact: Surgeon and Urologist Call non-emergency contact if: your symptoms worsen, your pain is not controlled, you have a fever, your temperature is above 101, your wound has increased redness, your wound has increased drainage and your wound pain has increased Follow-up/Referrals: Yelena Duncan MD [Primary Care Provider] - Ho Yeung DO [Physician] - 09/14/22 8:45 am (pathology review - phone call appointment) [facility],Nurse [FAKE FOR SCHEDULES] - 09/10/22 10:15 am (Catheter and staple removal) Diet: Regular Addtl Attending Provider Instructions: You had a Robotic Assisted Laparoscopic Radical Prostatectomy with Bilateral Pelvic Lymph Node Dissection, Umbilical Hernia Closure. Please take all medications as prescribed and keep all follow-ups as scheduled. Please call our office at [phone] with any questions, concerns or need to reschedule appointments for any reason. We are happy to assist you. Start your antibiotic 1 day prior to your appointment to remove catheter, continue as directed until completed. Recommend taking Tylenol as needed for pain/discomfort. A prescription for pain medication was sent to your pharmacy for breakthrough pain. This medication contains Tylenol. Do not exceed 3000 mg of Tylenol in [address] operate equipment if taking prescription pain medication. Activity: We recommend having someone with you for the first few days after surgery to help care for you. For the first 2 weeks after surgery, we would like you to get up and walk around your house. However, we recommend limit physical activity that would increase your heart rate. This will allow your body to rest and heal. Take naps if you feel tired. Don't lift anything heavier than 10 pounds, mow the law or ride a bicycle until your follow-up appointment. Please avoid long car rides. Home Care: Unless directed otherwise, drink 6 to 8 glasses of water a day (enough to keep your urine light colored). This will also help keep a healthy flow of urine. We recommend using a stool softener for the first two weeks to avoid constipation. Rogers Catheter or Suprapubic Catheter care: Keep the catheter well secured with either a leg back or leg strap with large bag. Empty your bag when it's about half full. You may notice some blood in the bag. This is normal after surgery and while the catheter is in place. Use mild soap (such as Dove or Dial) and water to wash the catheter and the head of your penis daily, or more frequently if needed. Return to your normal diet, we encourage good protein intake to promote healing. You may shower as normal. Please avoid tub baths or soaking until catheter removed and incisions well healed. Wearing sweat pants while you have the catheter is recommended, they will be more comfortable. Follow-up Your follow up appointments for having your catheter removed, and follow up with your physician should already be scheduled. If you have any questions regarding this, please contact our office. Your final pathology report will be discussed at your physician follow-up appointment. Call [facility] [place] [facility] at [phone] right away if you have any of the following: Chest pain or trouble breathing (call [phone] or go to the hospital) Fever of 101F or higher, uncontrolled vomiting Heavy bleeding, clots, or bright red blood from the catheter Catheter that falls out or stops draining Foul-smelling discharge from your catheter Redness, swelling, warmth, or increased pain at your incision site Drainage, pus, or bleeding from your incision Pending Studies at Discharge: Yes (pathology) Stand-Alone Forms: My [facility], Pain - Opioid Pain Management, Smoking Cessation Medications and DC Order Prescriptions: New ciprofloxacin HCl 500 mg tablet 500 mg PO BID Qty: 6 0RF docusate sodium [Colace] 100 mg capsule 100 mg PO BID Qty: 60 0RF Rx Instructions: Take twice daily for 2 weeks, then as needed for constipation. oxycodone-acetaminophen [Percocet] 5-325 mg tablet 1 tab PO TID PRN (Reason: pain) Qty: 10 0RF Rx Instructions: post operative pain Continued atorvastatin 20 mg tablet 20 mg PO HS Qty: 90 3RF Discharge Orders: Discharge Order (Routine); Ordered 09/03/22 Ordered By: Arabella Segovia/Other Patient Handouts: Prostate Cancer Radical ... Admission Data Admit Date/Time: 09/02/22 12:39 Attending Provider: Ho Yeung Admit Provider: Ho Yeung Primary Care Provider: Yelena Duncan Coding Level of Care Code HOSP INP/OBS DISCH 30 MIN/LESS Diagnoses Prostate cancer C61
== END 2022-09-03 13:40 | disposition home or self-care (01) | DRG 708 ==
LOC: ASU 06:22 → 3N 12:39 → OBSVTOIN 12:39 → INTOOBSV 12:39